=== PATIENT | female | born 1950 | race Caucasian/White ===

== ENCOUNTER 2019-08-09 12:30 | Outpatient (CLI) | payer MEDICARE, SELFPAY ==
--- NOTE | 2019-08-09 12:45 | XR_ITS ---
WS: [id number] Examination: DEXA scan HISTORY: Evaluating bone density FINDINGS: The lumbar spine shows a bone mineral density of 1.055 g/cm a T score -1.0, Z score 0.4 Both hip joints show a bone mineral density of 0.770, a T score of -1.9, Z score -0.7. 10 year probability of fractures Major osteoporotic 23.8% Hip 4.9%. XR/XR DEXA axial skeleton* [id number] IMPRESSION: Bone density findings consistent with osteopenia.
== END 2019-08-09 12:31 | disposition home or self-care (01) ==
LOC: RADWPI 12:34
PROVIDERS: Family Provider Family Medicine; PCP Family Medicine; Visit Provider Family Medicine
DX: Z78.0 Asymptomatic menopausal state (principal)
CPT/HCPCS: 77080

== ENCOUNTER 2019-10-31 11:20 | Outpatient (CLI) | payer MEDICARE, SELFPAY ==
--- NOTE | 2019-10-31 11:21 | MM_ITS ---
WS: [id number] BILATERAL SCREENING DIGITAL MAMMOGRAM WITH CAD HISTORY: SCREENING COMPARISON: 08/04/2018, 07/17/2013 and 07/18/2014 Bilateral CC and MLO views submitted. Computer aided detection analyzed. Breast composition: There are scattered areas of fibroglandular density. No suspicious masses, microc alcifications or architectural distortion. Persistent large tubular density in the anterior LEFT una st probably a dilated duct. Tubular asymmetry has been present on multiple prior examinations with no progression. Bilateral calcifications are negative. MM/[place] [id number] IMPRESSION: BI-RADS: 2-Benign FOLLOW UP: 1 Year Follow-up
== END 2019-10-31 11:21 | disposition home or self-care (01) ==
LOC: RADSHAW 11:20
PROVIDERS: PCP Family Medicine; Visit Provider Family Medicine
DX: Z12.31 Encounter for screening mammogram for malignant neoplasm of breast (principal)
CPT/HCPCS: 77067

== ENCOUNTER 2020-01-03 15:12 | Emergency (ER) | payer MEDICARE, SELFPAY ==
[2020-01-03 15:17] VITALS: BP 126/68; PULSE 84; RESP 12; TEMP 37.1; O2SAT 97; BMI 27.3
--- NOTE | 2020-01-03 15:28 | ED_ITS ---
HPI - Fall General: Chief Complaint: Fall Stated Complaint: FALL/HIT CONCRETE Time Seen by Provider: 01/03/20 15:24 History of Present Illness: HPI Narrative: Patient fell 9 days ago striking head on a retaining wall after falling off a stepstool. Said that she has had a headache ever since. Said that she has little bit of balance issues now no vision problems no nausea or vomiting no loss of consciousness from the fall. Went to Dr. Quiñones's office and they sent her up here for evaluation. complaint: fall Onset (ago): day(s) Fall from: other (Off a stepstool) Fall witnessed: no Place fall occurred: home Loss of consciousness: None Symptoms prior to fall: none Context: tripped/slipped Location of injury: head Associated symptoms-after fall: Reports headache(s); Denies abdominal pain or chest pain Review of Systems Const: Denies: fever(s), chills or body aches Eyes: Denies: change in vision or blurry vision ENMT: Denies: throat pain or nasal congestion Card: Denies: chest pain or dyspnea on exertion Resp: Denies: dyspnea, productive cough or non-productive cough GI: Denies: abdominal pain, nausea or vomiting Musc: Denies: extremity pain Skin/Breast: Denies: rash Neuro: Reports: headache(s) and other (Feels like she is a little off balance) Psych: Denies: anxiety or depression Quang/Lymph: Denies: easy bruising Physical Exam Const: COMMON NORMALS: no acute distress, average body habitus and patient oriented x3 HENMT: COMMON NORMALS: normocephalic HEAD & SCALP: normal to inspection and normocephalic FACE & SINUS: normal facial exam Eye: COMMON NORMALS: conjunctivae normal GENERAL EYE: appearance normal, both eyes and all related structures CONJUNCTIVA: Yes conjunctivae normal Neck/C-Spine: COMMON NORMALS: no JVD Chest: COMMONS NORMALS: normal inspection of the chest Resp: COMMON NORMALS: normal respiratory effort and clear to auscultation bilaterally AUSCULTATION: clear to auscultation bilaterally Cardio: COMMON NORMALS: no JVD, regular rate and regular rhythm RATE: regular rate RHYTHM: regular rhythm GI: COMMON NORMALS: Normal to inspection, nondistended, normoactive bowel sounds present Extremity: COMMON NORMALS: normal to inspection and full ROM Neuro: COMMON NORMALS: patient oriented x3, CN's II-XII intact bilaterally, moves all extremities, no focal motor deficits and no sensory deficits noted Skin: NARRATIVE SKIN EXAM: No bruising to the scalp appears to be a slight abrasion that is healed on the right side of the parietal frontal area Course Vital Signs: Vital signs: Vital Signs Temperature 98.7 F 01/03/20 15:17 Pulse Rate 84 01/03/20 15:17 Respiratory Rate 12 01/03/20 15:17 Blood Pressure 126/68 01/03/20 15:17 Pulse Oximetry 97 01/03/20 15:17 Discharge Plan Discharge Condition: Good Coding Level of Care Code ED Quality And Reliability Engineer for Sheldon Damian
--- NOTE | 2020-01-03 15:28 | CTR_ITS ---
PROCEDURE INFORMATION: Exam: CT Head Without Contrast Exam date and time: 01/03/2020 3:51 PM Age: 69 years old Clinical indication: Injury or trauma; Initial encounter; Blunt trauma (contusions or hematomas); Without loss of consciousness; Injury details: Fall x1 wk wo loc; Unsteady/dizzy/na/nausea; Prior surgery; Surgery date: 6+ months; Surgery type: Pituitary tumor TECHNIQUE: Imaging protocol: Computed tomography of the head without contrast. Radiation optimization: All CT scans at this facility use at least one of these dose optimization techniques: automated exposure control; mA and/or kV adjustment per patient size (includes targeted exams where dose is matched to clinical indication); or iterative reconstruction. COMPARISON: MRI IAC'S w/wo* [id number] 08/08/2018 1:17 PM RADIATION DOSE METRICS: Total DLP (mGy-cm): 883.24 FINDINGS: Brain: Normal. No hemorrhage. Unremarkable white matter. No mass effect. Ventricles: Normal. No ventriculomegaly. Bones/joints: Unremarkable. No acute fracture. Sinuses: Visualized sinuses are unremarkable. No fluid levels. Mastoid air cells: Visualized mastoid air cells are well aerated. Soft tissues: Unremarkable. CT/CT head wo con* [id number] IMPRESSION: No acute intracranial abnormality. Radiation Dose CTDIVOL = (mGy): DLP = 883.24 (mGy-cm)
[2020-01-03 17:24] VITALS: BP 162/75; PULSE 78; RESP 18; O2SAT 96
== END 2020-01-03 17:25 | disposition home or self-care (01) ==
PROVIDERS: Emergency Provider Nurse Practitioner Family; PCP Family Medicine
DX: S09.90XA Unspecified injury of head, initial encounter (principal); W07.XXXA Fall from chair, initial encounter
CPT/HCPCS: 12345; 70450; 99281; 99282

== ENCOUNTER 2020-06-13 08:31 | Outpatient (RCR) | payer MEDICARE, SELFPAY | END 2020-06-23 23:59 | disposition home or self-care (01) | LOC: SPT 08:31 | PROVIDERS: PCP Family Medicine; Referring Provider Chiropractor; Visit Provider Chiropractor | DX: M54.5 Low back pain (principal) | CPT/HCPCS: 97110; 97162; G0283 ==

== ENCOUNTER → 2020-06-20 11:23 | Outpatient (BNVA) | payer MEDICARE, SELFPAY | PROVIDERS: PCP Family Medicine; Referring Provider Family Medicine; Visit Provider Orthopaedic Surgery | DX: M54.9 Dorsalgia, unspecified (principal) | CPT/HCPCS: 72114 ==

== ENCOUNTER 2020-06-24 06:00 | Outpatient (RCR) | payer MEDICARE, SELFPAY | END 2020-07-21 23:59 | disposition home or self-care (01) | LOC: SPT 06:00 | PROVIDERS: PCP Family Medicine; Referring Provider Chiropractor; Visit Provider Chiropractor | DX: M54.5 Low back pain (principal) | CPT/HCPCS: 97110; G0283 ==

== ENCOUNTER 2020-07-15 10:07 | Outpatient (CLI) | payer MEDICARE, SELFPAY ==
--- NOTE | 2020-07-15 10:15 | MR_ITS ---
WS: [id number] MRI LUMBAR SPINE NONCONTRAST TECHNIQUE: Sagittal T1, T2 and STIR imaging. Axial T1 and T2 imaging. CLINICAL INFORMATION: M54.9 - Dorsalgia, unspecified COMPARISON: None. FINDINGS: Mild lumbar curve. No acute compression. No high-grade central canal stenosis. Disc space heights and vertebral body heights well-preserved. L1-L2: Normal. L2-L3: Mild annular bulging. Mild facet arthropathy. Small right foraminal protrusion with mild right foraminal narrowing. Slight contact of the exiting right L2 nerve root. L3-L4:Mild annular bulging with slight effacement of the ventral thecal sac. Small right foraminal pr otrusion with contact of the exiting right L3 nerve root. Mild facet arthropathy. L4-L5: Mild annular bulging. Slight effacement of ventral thecal sac. Spinal canal and foramen are pa tent. Mild facet arthropathy. L5-S1: Shallow tiny right pericentral protrusion. Slight effacement of ventral thecal sac. Spinal can al and foramen are patent. Mild facet arthropathy. Visualized pelvic bony structures: Normal. Paravertebral soft tissues: Normal. MR/MR lumbar spine wo con* [id number] IMPRESSION: 1. Mild lumbar curve. No acute compression. No high-grade central canal stenos is. 2. Small right foraminal protrusions L2-3 and L3-4 with contact of the exiting right L2 and L3 nerve roots respectively. Recommend correlation for right L2 a nd L3 nerve root symptoms. 3. Shallow right pericentral disc protrusion L5-S1 with slight effacement of t he ventral thecal sac.
== END 2020-07-15 10:08 | disposition home or self-care (01) ==
LOC: RADSHAW 10:09
PROVIDERS: PCP Family Medicine; Visit Provider Orthopaedic Surgery
DX: M51.27 Other intervertebral disc displacement, lumbosacral region (principal); M51.26 Other intervertebral disc displacement, lumbar region
CPT/HCPCS: 72148

== ENCOUNTER → 2020-08-05 08:26 | Outpatient (BNVA) | payer MEDICARE, SELFPAY | PROVIDERS: PCP Family Medicine; Referring Provider Orthopaedic Surgery; Visit Provider Anesthesiology Pain Medicine | DX: M54.9 Dorsalgia, unspecified (principal); M48.061 Spinal stenosis, lumbar region without neurogenic claudication; M47.816 Spondylosis without myelopathy or radiculopathy, lumbar region; M54.16 Radiculopathy, lumbar region | CPT/HCPCS: 99205 ==

== ENCOUNTER → 2020-08-12 13:52 | Outpatient (BNVA) | payer MEDICARE, SELFPAY | PROVIDERS: PCP Family Medicine; Visit Provider Anesthesiology Pain Medicine | DX: M54.16 Radiculopathy, lumbar region (principal); M54.9 Dorsalgia, unspecified | CPT/HCPCS: 64483; 64484; J1100; J3490 ==

== ENCOUNTER → 2020-08-28 10:26 | Outpatient (BNVA) | payer MEDICARE, SELFPAY | PROVIDERS: PCP Family Medicine; Visit Provider Anesthesiology Pain Medicine | DX: M48.061 Spinal stenosis, lumbar region without neurogenic claudication (principal); M47.816 Spondylosis without myelopathy or radiculopathy, lumbar region; M54.16 Radiculopathy, lumbar region; M54.9 Dorsalgia, unspecified | CPT/HCPCS: 99214 ==

== ENCOUNTER → 2020-09-11 13:04 | Outpatient (BNVA) | payer MEDICARE, SELFPAY | PROVIDERS: PCP Family Medicine; Visit Provider Anesthesiology Pain Medicine | DX: M54.16 Radiculopathy, lumbar region (principal); M54.9 Dorsalgia, unspecified | CPT/HCPCS: 64483; 64484; 64494; J1100; J3490 ==

== ENCOUNTER → 2020-09-25 09:14 | Outpatient (BNVA) | payer MEDICARE, SELFPAY | PROVIDERS: PCP Family Medicine; Visit Provider Anesthesiology Pain Medicine | DX: M54.9 Dorsalgia, unspecified (principal); M48.061 Spinal stenosis, lumbar region without neurogenic claudication; M47.816 Spondylosis without myelopathy or radiculopathy, lumbar region; M54.16 Radiculopathy, lumbar region | CPT/HCPCS: 99214 ==

== ENCOUNTER → 2020-10-09 12:35 | Outpatient (BNVA) | payer MEDICARE, SELFPAY | PROVIDERS: PCP Family Medicine; Visit Provider Anesthesiology Pain Medicine | DX: M47.816 Spondylosis without myelopathy or radiculopathy, lumbar region (principal); M54.9 Dorsalgia, unspecified | CPT/HCPCS: 64493; 64494; 64495; J3490 ==

== ENCOUNTER → 2020-10-23 13:18 | Outpatient (BNVA) | payer MEDICARE, SELFPAY | PROVIDERS: PCP Family Medicine; Visit Provider Anesthesiology Pain Medicine | DX: M47.816 Spondylosis without myelopathy or radiculopathy, lumbar region (principal); M54.9 Dorsalgia, unspecified | CPT/HCPCS: 64493; 64494; 64495; J3490 ==

== ENCOUNTER → 2020-11-05 08:47 | Outpatient (BNVA) | payer MEDICARE, SELFPAY | PROVIDERS: PCP Family Medicine; Visit Provider Anesthesiology Pain Medicine | DX: M54.9 Dorsalgia, unspecified (principal); M48.061 Spinal stenosis, lumbar region without neurogenic claudication; M47.816 Spondylosis without myelopathy or radiculopathy, lumbar region; M54.16 Radiculopathy, lumbar region | CPT/HCPCS: 99213; 99214 ==

== ENCOUNTER → 2020-11-13 14:07 | Outpatient (BNVA) | payer MEDICARE, SELFPAY | PROVIDERS: PCP Family Medicine; Visit Provider Anesthesiology Pain Medicine | DX: M47.816 Spondylosis without myelopathy or radiculopathy, lumbar region (principal); M54.9 Dorsalgia, unspecified | CPT/HCPCS: 64635; 64636; J1030 ==

== ENCOUNTER 2020-11-28 09:41 | Outpatient (CLI) | payer MEDICARE, SELFPAY ==
--- NOTE | 2020-11-28 09:45 | MM_ITS ---
WS: [id number] BILATERAL DIGITAL SCREENING MAMMOGRAPHY WITH CAD CLINICAL INFORMATION: SCREENING HISTORY: Screening mammogram. No current complaints. COMPARISON: October 31, 2019 TECHNIQUE: Bilateral CC and MLO views. FINDINGS: Scattered fibroglandular densities bilaterally. No suspicious focal mass, asymmetry, calcifications, or architectural distortion. No evidence of malignancy. Incidental benign-appearing punctate calcific ations similar to previous. Bilateral mole markers. MM/[place] [id number] IMPRESSION: BI-RADS: 2-Benign FOLLOW UP: 1 Year Follow-up Recommend return to annual screening mammography.
== END 2020-11-28 09:42 | disposition home or self-care (01) ==
LOC: RADSHAW 09:44
PROVIDERS: PCP Family Medicine; Visit Provider Family Medicine
DX: Z12.31 Encounter for screening mammogram for malignant neoplasm of breast (principal)
CPT/HCPCS: 77067

== ENCOUNTER 2021-08-14 13:34 | Outpatient (CLI) | payer MEDICARE, SELFPAY ==
--- NOTE | 2021-08-14 13:51 | XR_ITS ---
WS: [id number] DEXA (DUAL ENERGY X-RAY ABSORPTIOMETRY) Bone mineral density was performed using a [employer] machine. HISTORY: POST MENOPAUSAL COMPARISON: 08/09/2019 Lumbar spine BMD (L1-L4): 1.053 g/cm2 T score: -1.1 Z score: 0.4 Total hip BMD: Left: 0.799 g/cm2. T score: -1.7 Z score: -0.4 Right: 0.744 g/cm2. T score: -2.1 Z score: -0.8 10 year probability of a major osteoporotic fracture is 26%. Compared to the prior study from 08/09/2019. Lumbar spine bone mineral density has decrease by 0.2%. Bilateral hips bone mineral density has increased by 0.1%. XR/XR DEXA axial skeleton* [id number] IMPRESSION: OSTEOPENIA based upon the WHO classification for females. No significant change in bone mineral density since the prior study.
== END 2021-08-14 13:35 | disposition home or self-care (01) ==
PROVIDERS: PCP Family Medicine; Visit Provider Family Medicine
DX: Z78.0 Asymptomatic menopausal state (principal); M85.80 Other specified disorders of bone density and structure, unspecified site
CPT/HCPCS: 77080

== ENCOUNTER 2021-09-15 14:06 | Outpatient (CLI) | payer MEDICARE, SELFPAY | END 2021-09-15 14:07 | disposition home or self-care (01) | LOC: SPT 09-16 14:07 | PROVIDERS: PCP Family Medicine; Visit Provider Podiatrist Foot & Ankle Surgery | DX: M72.2 Plantar fascial fibromatosis (principal); M76.70 Peroneal tendinitis, unspecified leg | CPT/HCPCS: 97760; L3030 ==

== ENCOUNTER 2021-12-22 11:45 | Outpatient (CLI) | payer MEDICARE, SELFPAY ==
--- NOTE | 2021-12-22 11:49 | MM_ITS ---
WS: [id number] BILATERAL 3D TOMOSYNTHESIS DIGITAL SCREENING MAMMOGRAPHY WITH CAD CLINICAL INFORMATION: SCREEN HISTORY: Screening mammogram. No current complaints. COMPARISON: November 28, 2020 TECHNIQUE: Bilateral CC and MLO views. FINDINGS: Scattered fibroglandular densities bilaterally. Multiple incidental punctate calcifications. No suspi cious focal mass, asymmetry, calcifications, or architectural distortion. No evidence of malignancy. MM/[place] [id number] IMPRESSION: BI-RADS: 2-Benign FOLLOW UP: 1 Year Follow-up Recommend return to annual screening mammography.
== END 2021-12-22 11:46 | disposition home or self-care (01) ==
LOC: RAD 11:46
PROVIDERS: PCP Family Medicine; Visit Provider Family Medicine
DX: Z12.31 Encounter for screening mammogram for malignant neoplasm of breast (principal)
CPT/HCPCS: 77063; 77067

== ENCOUNTER 2022-12-24 09:37 | Outpatient (CLI) | payer BC, SELFPAY ==
--- NOTE | 2022-12-24 09:47 | MM_ITS ---
WS: [id number] BILATERAL SCREENING DIGITAL TOMOSYNTHESIS MAMMOGRAM WITH CAD HISTORY: SCREENING COMPARISON: 07/13/2012, 12/22/2021 and 11/28/2020 Bilateral CC and MLO views with tomosynthesis and synthetic mammography submitted. Computer aided det ection analyzed. Breast composition: There are scattered areas of fibroglandular density. No suspicious masses, microc alcifications or architectural distortion. Focal asymmetries in the anterior aspect of each breast ar e stable. Benign scattered calcifications. MM/[place] [id number] IMPRESSION: BI-RADS: 2-Benign FOLLOW UP: 1 Year Follow-up
== END 2022-12-24 09:38 | disposition home or self-care (01) ==
PROVIDERS: PCP Family Medicine; Visit Provider Family Medicine
DX: Z12.31 Encounter for screening mammogram for malignant neoplasm of breast (principal)
CPT/HCPCS: 77063; 77067

== ENCOUNTER → 2023-05-03 12:48 | Outpatient (BNVA) | payer BC, SELFPAY | PROVIDERS: PCP Family Medicine; Visit Provider Specialist | DX: M79.642 Pain in left hand (principal) | CPT/HCPCS: 73130 ==

== ENCOUNTER 2023-05-25 09:50 | Outpatient (CLI) | payer MEDICARE, SELFPAY ==
--- NOTE | 2023-05-25 10:15 | MR_ITS ---
WS: [id number] MRI LEFT HAND WITHOUT GADOLINIUM ENHANCEMENT INDICATION: Ring finger pain TECHNIQUE: Coronal T1, coronal STIR, axial T2, axial T1, sagittal T2 fat-sat, coronal 3D FSPGR FINDINGS: Limited diagnostic examination due to patient positioning and motion artifact. Small T2 hyperintense lesion at the fourth MCP joint along the palmar surface measuring 3 mm suspicio us for small ganglion cyst. Advanced degenerative arthritis with edema and degenerative narrowing inv olving the fourth PIP and DIP joints with bone marrow edema worse in the middle phalanx. Associated d iffuse synovial thickening with small periarticular erosions. Recommend correlation for inflammatory arthritis versus ligamentous injury. No definite visualized fractures in this area considering motion artifact. Normal carpal tunnel. Small osseous fragment adjacent to the fourth proximal phalanx on the radial si de unchanged as the prior radiograph may be due to soft tissue calcification or tiny avulsion. No other acute findings considering limitations. IMPRESSION: Very limited diagnostic examination due to patient positioning and motion artifact. 1. Small suspected 3.5 mm ganglion cyst palmar surface fourth MCP joint 2. Bone marrow edema involving the fourth distal proximal phalanx and middle phalanx with periarticu lar erosions and diffuse synovial thickening. Recommend correlation for inflammatory arthritis. No vi sualized fractures in this area. 3. Thickening and irregularity of the collateral ligaments at the fourth PIP. Recommend correlation for ligamentous injury. 4. Small osseous fragment adjacent to the fourth proximal phalanx radial aspect also seen on the luis angel or radiograph may present a small avulsion fracture or osseous calcification
== END 2023-05-25 09:51 | disposition home or self-care (01) ==
LOC: RAD 09:53
PROVIDERS: PCP Family Medicine; Visit Provider Specialist
DX: M79.642 Pain in left hand (principal); M79.89 Other specified soft tissue disorders; R93.6 Abnormal findings on diagnostic imaging of limbs
CPT/HCPCS: 73218

== ENCOUNTER → 2023-06-07 09:47 | Outpatient (BNVA) | payer MEDICARE, SELFPAY | PROVIDERS: PCP Family Medicine; Visit Provider Specialist | DX: M06.9 Rheumatoid arthritis, unspecified (principal); M79.642 Pain in left hand | CPT/HCPCS: 36415; 85025; 85651; 86140; 86160; 86162; 86200; 86235; 86255; 86376; 86431; 99214 ==

== ENCOUNTER → 2023-09-27 09:36 | Outpatient (BNVA) | payer MEDICARE, SELFPAY | PROVIDERS: PCP Family Medicine; Visit Provider Internal Medicine Rheumatology | DX: Z79.899 Other long term (current) drug therapy (principal); M19.90 Unspecified osteoarthritis, unspecified site; M45.6 Ankylosing spondylitis lumbar region; Z11.59 Encounter for screening for other viral diseases; Z11.1 Encounter for screening for respiratory tuberculosis; Z71.85 Encounter for immunization safety counseling | CPT/HCPCS: 36415; 80076; 82306; 82565; 83520; 85025; 86480; 86704; 86803; 86812; 87340; 99204 ==

== ENCOUNTER 2023-12-27 08:14 | Outpatient (CLI) | payer MEDICARE, SELFPAY ==
--- NOTE | 2023-12-27 08:24 | MM_ITS ---
WS: [id number] BILATERAL SCREENING DIGITAL TOMOSYNTHESIS MAMMOGRAM WITH CAD HISTORY: SCREENING COMPARISON: 12/24/2022, 12/22/2021 and 07/24/2016 Bilateral CC and MLO views with tomosynthesis and synthetic mammography submitted. Computer aided det ection analyzed. Breast composition: There are scattered areas of fibroglandular density. No suspicious masses, microc alcifications or architectural distortion. The asymmetries in the subareolar locations are similar ov er multiple prior years. Benign scattered calcifications in each breast. MM/[place] [id number] IMPRESSION: BI-RADS: 2-Benign FOLLOW UP: 1 Year Follow-up
== END 2023-12-27 08:15 | disposition home or self-care (01) ==
PROVIDERS: PCP Family Medicine; Visit Provider Family Medicine
DX: Z12.31 Encounter for screening mammogram for malignant neoplasm of breast (principal); R92.323 Mammographic fibroglandular density, bilateral breasts; R92.1 Mammographic calcification found on diagnostic imaging of breast; N64.89 Other specified disorders of breast
CPT/HCPCS: 77063; 77067

== ENCOUNTER → 2024-01-04 12:45 | Outpatient (BNVA) | payer MEDICARE, SELFPAY | PROVIDERS: PCP Family Medicine; Visit Provider Internal Medicine Rheumatology | DX: M06.041 Rheumatoid arthritis without rheumatoid factor, right hand (principal); M06.042 Rheumatoid arthritis without rheumatoid factor, left hand; Z79.899 Other long term (current) drug therapy; Z71.85 Encounter for immunization safety counseling; Z11.1 Encounter for screening for respiratory tuberculosis; Z11.59 Encounter for screening for other viral diseases | CPT/HCPCS: 99214 ==

== ENCOUNTER 2024-02-04 11:34 | Outpatient (CLI) | payer MEDICARE, SELFPAY ==
[2024-02-04 11:53] LABS: Basophils # 0.1 10^3/uL (0.0-0.1); Basophils % 1.1 %; Eosinophils # 0.1 10^3/uL (0.0-0.8); Eosinophils % 2.6 %; Hematocrit 41.6 % (36-47); Lymphocytes # 1.7 10^3/uL (0.8-4.8); Lymphocytes % 36.6 %; Mean Corpuscular HGB Conc 32.5 g/dL (30-55); Mean Corpuscular Hemoglobin 28.1 pg (27-33); Mean Corpuscular Volume 86.7 fl (85-98); Mean Platelet Volume 9.1 fL (7.4-10.4); Monocytes # 0.5 10^3/uL (0.2-0.9); Monocytes % 9.6 %; Neutrophils # 2.33 10^3/uL (1.8-7.7); Neutrophils % 49.9 %; Nucleated Red Blood Cells % 0 %; Platelet Count 227 10^3/cmm (157-399); Red Cell Distribution Width 12.9 % (12.1-15.1); White Blood Count 4.67 10^3/uL (3.29-11.43)
[2024-02-04 12:09] LABS: Erythrocyte Sedimentation Rate 4 mm/hr (0-15)
[2024-02-04 12:14] LABS: Alanine Aminotransferase 22 U/L (0-33); Albumin Level 4.5 g/dL (3.5-5.2); Alkaline Phosphatase 114 U/L (35-105); Aspartate Amino Transferase 25 U/L (0-32); Globulin 2.7 g/dL (1.3-4.6); Total Bilirubin 0.3 mg/dL (0.15-1.2); Total Protein 7.2 g/dL (6.6-8.7)
== END 2024-02-04 11:35 | disposition home or self-care (01) ==
LOC: LAB 11:35
PROVIDERS: PCP Family Medicine; Visit Provider Internal Medicine Rheumatology
DX: Z79.899 Other long term (current) drug therapy (principal); M19.90 Unspecified osteoarthritis, unspecified site
CPT/HCPCS: 80076; 82565; 85025; 85651; 86140

== ENCOUNTER → 2024-02-21 14:07 | Outpatient (BNVA) | payer MEDICARE, SELFPAY | PROVIDERS: PCP Family Medicine; Visit Provider Nurse Practitioner Family | DX: L82.0 Inflamed seborrheic keratosis (principal); L72.0 Epidermal cyst; L73.8 Other specified follicular disorders; D22.5 Melanocytic nevi of trunk; L81.4 Other melanin hyperpigmentation | CPT/HCPCS: 17110; 99213 ==

== ENCOUNTER 2024-03-08 15:17 | Outpatient (CLI) | payer MEDICARE, SELFPAY ==
--- NOTE | 2024-03-08 15:27 | XR_ITS ---
WS: [id number] DEXA (DUAL ENERGY X-RAY ABSORPTIOMETRY) Bone mineral density was performed using a [employer] machine. HISTORY: POSTMENOPAUSAL COMPARISON: 08/14/2021 Lumbar spine BMD (L1-L4): 1.087 g/cm2 T score: -0.8 Z score: 0.7 Total hip BMD: Left: 0.774 g/cm2. T score: -1.9 Z score: -0.4 Right: 0.727 g/cm2. T score: -2.2 Z score: -0.8 10 year probability of a major osteoporotic fracture is 40.8%. Compared to the prior study from 08/14/2021. Lumbar spine bone mineral density has increased by 3.2%. Bilateral hips bone mineral density has decreased by 2.7%. XR/XR DEXA axial skeleton* [id number] IMPRESSION: OSTEOPENIA based upon the WHO classification for females. Significant increase in bone mineral density within the lumbar spine since the prior study. Significant decrease in bone mineral density within the hips since the prior st [facility].
== END 2024-03-08 15:18 | disposition home or self-care (01) ==
PROVIDERS: PCP Family Medicine; Visit Provider Family Medicine
DX: Z13.820 Encounter for screening for osteoporosis (principal); Z78.0 Asymptomatic menopausal state; M85.80 Other specified disorders of bone density and structure, unspecified site
CPT/HCPCS: 77080

== ENCOUNTER 2024-05-05 07:33 | Outpatient (CLI) | payer MEDICARE, SELFPAY ==
[2024-05-05 07:46] LABS: Basophils # 0.1 10^3/uL (0.0-0.1); Basophils % 1.2 %; Eosinophils # 0.2 10^3/uL (0.0-0.8); Eosinophils % 3.3 %; Hematocrit 41.6 % (36-47); Lymphocytes # 1.6 10^3/uL (0.8-4.8); Lymphocytes % 30.7 %; Mean Corpuscular HGB Conc 31.7 g/dL (30-55); Mean Corpuscular Hemoglobin 27.5 pg (27-33); Mean Corpuscular Volume 86.7 fl (85-98); Mean Platelet Volume 9.3 fL (7.4-10.4); Monocytes # 0.6 10^3/uL (0.2-0.9); Monocytes % 10.8 %; Neutrophils # 2.73 10^3/uL (1.8-7.7); Neutrophils % 53.8 %; Nucleated Red Blood Cells % 0 %; Platelet Count 251 10^3/cmm (157-399); Red Cell Distribution Width 13.4 % (12.1-15.1); White Blood Count 5.08 10^3/uL (3.29-11.43)
[2024-05-05 08:08] LABS: Erythrocyte Sedimentation Rate 6 mm/hr (0-15)
[2024-05-05 08:18] LABS: Alanine Aminotransferase 27 U/L (0-33); Albumin Level 4.3 g/dL (3.5-5.2); Alkaline Phosphatase 114 U/L (35-105); Aspartate Amino Transferase 25 U/L (0-32); Total Bilirubin 0.3 mg/dL (0.15-1.2); Total Protein 7.3 g/dL (6.6-8.7)
== END 2024-05-05 07:34 | disposition home or self-care (01) ==
PROVIDERS: PCP Family Medicine; Visit Provider Internal Medicine Rheumatology
DX: M19.90 Unspecified osteoarthritis, unspecified site (principal); Z79.899 Other long term (current) drug therapy
CPT/HCPCS: 36415; 80076; 82565; 85025; 85651; 86140

== ENCOUNTER → 2024-05-09 14:16 | Outpatient (BNVA) | payer MEDICARE, SELFPAY | PROVIDERS: PCP Family Medicine; Visit Provider Internal Medicine Rheumatology | DX: Z79.899 Other long term (current) drug therapy (principal); M06.041 Rheumatoid arthritis without rheumatoid factor, right hand; M06.042 Rheumatoid arthritis without rheumatoid factor, left hand; Z71.85 Encounter for immunization safety counseling | CPT/HCPCS: 99214 ==

== ENCOUNTER 2024-06-07 12:20 | Outpatient (CLI) | payer OTHER, SELFPAY ==
[2024-06-07 12:41] LABS: Basophils # 0.1 10^3/uL (0.0-0.1); Basophils % 1.6 %; Eosinophils # 0.1 10^3/uL (0.0-0.8); Eosinophils % 2.6 %; Hematocrit 41.6 % (36-47); Lymphocytes # 1.9 10^3/uL (0.8-4.8); Lymphocytes % 37.7 %; Mean Corpuscular HGB Conc 31.7 g/dL (30-55); Mean Corpuscular Hemoglobin 27.6 pg (27-33); Mean Corpuscular Volume 86.8 fl (85-98); Mean Platelet Volume 9.3 fL (7.4-10.4); Monocytes # 0.5 10^3/uL (0.2-0.9); Neutrophils # 2.39 10^3/uL (1.8-7.7); Neutrophils % 47.9 %; Nucleated Red Blood Cells % 0 %; Platelet Count 248 10^3/cmm (157-399); Red Blood Count 4.79 10^6/uL (3.85-5.65); Red Cell Distribution Width 13.2 % (12.1-15.1); White Blood Count 4.99 10^3/uL (3.29-11.43)
[2024-06-07 12:43] LABS: Erythrocyte Sedimentation Rate 3 mm/hr (0-15)
[2024-06-07 13:04] LABS: Alanine Aminotransferase 22 U/L (0-33); Albumin Level 4.5 g/dL (3.5-5.2); Alkaline Phosphatase 124 U/L (35-105); Aspartate Amino Transferase 25 U/L (0-32); Globulin 2.9 g/dL (1.3-4.6); Total Bilirubin 0.5 mg/dL (0.15-1.2); Total Protein 7.4 g/dL (6.6-8.7)
== END 2024-06-07 12:21 | disposition home or self-care (01) ==
LOC: LAB 12:21
PROVIDERS: PCP Family Medicine; Visit Provider Internal Medicine Rheumatology
DX: Z79.899 Other long term (current) drug therapy (principal); M06.041 Rheumatoid arthritis without rheumatoid factor, right hand; M06.042 Rheumatoid arthritis without rheumatoid factor, left hand
CPT/HCPCS: 36415; 80076; 82565; 85025; 85651; 86140

== ENCOUNTER → 2024-11-30 11:16 | Outpatient (BNVA) | payer MEDICARE, SELFPAY | PROVIDERS: PCP Family Medicine; Visit Provider Nurse Practitioner Family | DX: D22.5 Melanocytic nevi of trunk (principal); L81.4 Other melanin hyperpigmentation; L82.0 Inflamed seborrheic keratosis; L29.89 Other pruritus; R20.9 Unspecified disturbances of skin sensation; R20.8 Other disturbances of skin sensation; L53.8 Other specified erythematous conditions; D48.5 Neoplasm of uncertain behavior of skin | CPT/HCPCS: 11102; 17110; 99213 ==

== ENCOUNTER 2024-12-27 09:48 | Outpatient (CLI) | payer MEDICARE, SELFPAY ==
--- NOTE | 2024-12-27 09:53 | MM_ITS ---
WS: [id number] BILATERAL SCREENING DIGITAL TOMOSYNTHESIS MAMMOGRAM WITH CAD HISTORY: SCREENING COMPARISON: 12/27/2023, 12/24/2022 Bilateral CC and MLO views with tomosynthesis and synthetic mammography submitted. Computer aided detection analyzed. Breast composition: There are scattered areas of fibroglandular density. No suspicious masses, microcalcifications or architectural distortion. Benign calcifications in each breast. Stable asymmetries retroareolar of each breast. MM/MM scr tomosynthesis [id number] IMPRESSION: BI-RADS: 2 - Benign. FOLLOW UP: 1 Year Follow-up
== END 2024-12-27 09:49 | disposition home or self-care (01) ==
LOC: RAD 09:49
PROVIDERS: PCP Family Medicine; Visit Provider Family Medicine
DX: Z12.31 Encounter for screening mammogram for malignant neoplasm of breast (principal); R92.323 Mammographic fibroglandular density, bilateral breasts
CPT/HCPCS: 77063; 77067

== ENCOUNTER 2025-02-12 08:58 | Outpatient (RCR) | payer MEDICARE, SELFPAY | END 2025-02-20 23:59 | disposition home or self-care (01) | LOC: SPT 08:58 | PROVIDERS: Visit Provider Orthopaedic Surgery | DX: Z47.1 Aftercare following joint replacement surgery (principal); Z96.652 Presence of left artificial knee joint | CPT/HCPCS: 97110; 97161; G0283 ==

== ENCOUNTER 2025-02-21 05:00 | Outpatient (RCR) | payer MEDICARE, SELFPAY | END 2025-03-23 23:59 | disposition home or self-care (01) | LOC: SPT 05:00 | PROVIDERS: Visit Provider Orthopaedic Surgery | DX: Z47.1 Aftercare following joint replacement surgery (principal); Z96.652 Presence of left artificial knee joint | CPT/HCPCS: 97110; G0283 ==

== ENCOUNTER 2025-03-16 08:53 | Outpatient (RCR) | payer MEDICARE, SELFPAY | END 2025-03-23 23:59 | disposition home or self-care (01) | LOC: SOT 08:53 | PROVIDERS: Visit Provider Physician Assistant Medical | DX: S49.1 Physeal fracture of lower end of humerus (principal); M77.8 Other enthesopathies, not elsewhere classified | CPT/HCPCS: 97035; 97165 ==

== ENCOUNTER 2025-03-24 05:00 | Outpatient (RCR) | payer MEDICARE, SELFPAY | END 2025-04-22 23:59 | disposition home or self-care (01) | LOC: SOT 05:00 | PROVIDERS: Visit Provider Physician Assistant Medical | DX: M77.8 Other enthesopathies, not elsewhere classified (principal); S49.1 Physeal fracture of lower end of humerus; X58.XXXD Exposure to other specified factors, subsequent encounter | CPT/HCPCS: 97035; 97140 ==